=== PATIENT | male | born 1985 | race Caucasian/White ===

== ENCOUNTER 2023-03-21 14:06 | Outpatient (CLI) | payer BC | END 2023-03-21 14:07 | disposition home or self-care (01) | LOC: BICMRI 14:06 | PROVIDERS: ATTEND Orthopaedic Surgery | DX: S46.211A Strain of muscle, fascia and tendon of other parts of biceps, right arm, initial encounter (principal) ==

== ENCOUNTER 2023-04-01 06:58 | Day surgery (SDC) | payer BC ==
[2023-03-31 08:21] VITALS: BMI 39.4
[2023-04-01] MEDS ORDERED: Bupivacaine PF 0.5% 30 ML VIAL ONE (08:01)
[2023-04-01] MEDS ORDERED: Midazolam HCl 2 mg/2 ml Vial ONE (08:01)
[2023-04-01] MEDS ORDERED: fentaNYL 50 mcg/mL 1 mL Vial ONE (08:01)
[2023-04-01 08:14] LABS: #Basophils 0.1 thou/uL (0.0-0.2); #Eosinphils 0.1 thou/uL (0.0-0.7); #Monocytes 0.5 thou/uL (0.11-0.59); %Basophils 0.7 % (0.0-1.0); %Eosinophils 1.5 % (0.0-10.0); %Monocytes 7.3 % (0.0-10.0); %Neutrophils 55.2 % (42.0-75.0); Hematocrit 43.6 % (42.0-52.0); Hemoglobin 15.2 g/dL (14.0-18.0); Mean Corpuscular HGB CONC 34.9 g/dL (32.0-36.0); Mean Corpuscular Volume 88.8 fl (78.0-98.0); Mean Platelet Volume 10.1 fL (7.4-10.4); Platelet Count 245 10x3/uL (130-400); RBC Distribution Width 12.2 % (11.5-14.5); Red Blood Cell (RBC) Count 4.91 mill/uL (4.70-6.10); White Blood Cell (WBC) Count 7.2 10x3/uL (4.8-10.8)
[2023-04-01] MEDS ORDERED: Zolpidem Tartrate 5 MG TAB PO PRN (09:30)
[2023-04-01] MEDS ORDERED: Ondansetron PF 4 MG/2 ML Vial IVP PRN (09:30)
[2023-04-01] MEDS ORDERED: Promethazine HCl 25 MG/ML VIAL IM PRN (09:30)
[2023-04-01] MEDS ORDERED: HYDROcodone/Acetaminophen 10/325 mg Tablet PO PRN ×2 (09:30)
[2023-04-01] MEDS ORDERED: traMADol HCl 50 MG TAB PO PRN ×2 (09:30)
[2023-04-01] MEDS ORDERED: Ropivacaine 0.2% 550 ML 550 ML NERVE BLCK SCH (09:30)
[2023-04-01] MEDS ORDERED: Lidocaine 2% PF 5 ML VIAL ONE (09:51)
[2023-04-01] MEDS ORDERED: Lidocaine 1% (PF) 30 ML VIAL ONE (09:51)
[2023-04-01] MEDS ORDERED: Lidocaine 4% Topical Sol 50 ML BOT ONE (09:51)
[2023-04-01] MEDS ORDERED: EPINEPHrine 1 MG/ML AMP ONE (09:51)
[2023-04-01] MEDS ORDERED: fentaNYL PF 100 MCG/2 ML SYRINGE ONE (09:54)
[2023-04-01] MEDS ORDERED: HYDROmorphone 2 MG/ML VIAL ONE (09:54)
[2023-04-01] MEDS ORDERED: CEFAZOLIN 2 GM VIAL ONE (09:56)
[2023-04-01] MEDS ORDERED: Sodium Chloride 0.9% 100 ML ONE (09:56)
[2023-04-01] MEDS ORDERED: Ketorolac Tromethamine 30 MG/ML VIAL ONE (10:05)
[2023-04-01] MEDS ORDERED: Dexamethasone 20 MG/5 ML VIAL ONE (10:05)
[2023-04-01] MEDS ORDERED: PROPOFOL 200 MG/20 ML VIAL ONE (10:05)
[2023-04-01] MEDS ORDERED: Ropivacaine 0.5% HCl/PF (150 MG/30 ML VIAL) ONE (10:05)
[2023-04-01] MEDS ORDERED: Ropivacaine 2% HCl/PF (20 MG/10 ML VIAL) ONE (10:05)
[2023-04-01] MEDS ORDERED: Lidocaine 1% PF 5 ML VIAL ONE (10:05)
[2023-04-01] MEDS ORDERED: Ondansetron PF 4 MG/2 ML Vial ONE (10:05)
[2023-04-01] MEDS ORDERED: Ketorolac Tromethamine 30 MG/ML VIAL IVP SCH (12:00)
== END 2023-04-01 13:40 | disposition home or self-care (01) ==
LOC: SDC 06:58
PROVIDERS: ATTEND Orthopaedic Surgery
PROC: 0LS30ZZ Reposition Right Upper Arm Tendon, Open Approach (ICD-10-PCS; principal; 2023-04-01)
DX: S46.211A Strain of muscle, fascia and tendon of other parts of biceps, right arm, initial encounter (principal); X58.XXXA Exposure to other specified factors, initial encounter
CPT/HCPCS: 85025; A4306; C1713; J0171; J1100; J1170; J1885; J2001; J2250; J2405; J2704; J2795; J3010; J3490; S0020

== ENCOUNTER 2023-09-19 16:00 | Outpatient (CLI) | payer BC | END 2023-09-19 16:01 | LOC: SLEEPLAB 16:00 | PROVIDERS: ATTEND Nurse Practitioner Family | DX: G47.33 Obstructive sleep apnea (adult) (pediatric) (principal); R06.83 Snoring; R53.83 Other fatigue; G47.61 Periodic limb movement disorder | CPT/HCPCS: 95811 ==

== ENCOUNTER 2025-04-10 17:49 | Emergency (ER) | payer BC | END 2025-04-10 18:54 | disposition home or self-care (01) | LOC: ERS 17:49 | DX: M25.511 Pain in right shoulder (principal); X50.0XXA Overexertion from strenuous movement or load, initial encounter | CPT/HCPCS: 99283 ==

== ENCOUNTER 2025-04-20 09:56 | Outpatient (CLI) | payer BC ==
[2025-04-20 10:31] LABS: #Basophils 0.04 10x3/uL (0.0-0.2); #Eosinophils 0.09 10x3/uL (0.0-0.7); #Monocytes 0.60 10x3/uL (0.11-0.59); #Neutrophils 5.29 10x3/uL (1.40-6.50); %Basophils 0.5 % (0.0-1.0); %Eosinophils 1.1 % (0.0-10.0); %Lymphocytes 24.5 % (21.0-51.0); %Monocytes 7.5 % (0.0-10.0); %Neutrophils 65.9 % (42.0-75.0); Hematocrit 47.1 % (42.0-52.0); Hemoglobin 16.2 g/dL (14.0-18.0); Mean Corpuscular Hemoglobin 30.3 pg (27.0-31.0); Mean Corpuscular Volume 88.2 fL (78.0-98.0); Platelet Count 211 10x3/uL (130-400); Red Blood Cell (RBC) Count 5.34 mill/uL (4.70-6.10); White Blood Cell (WBC) Count 8.03 10x3/uL (4.8-10.8)
== END 2025-04-20 09:57 | disposition home or self-care (01) ==
LOC: LABBT 09:56
PROVIDERS: ATTEND Orthopaedic Surgery
DX: Z01.812 Encounter for preprocedural laboratory examination (principal); S29.011A Strain of muscle and tendon of front wall of thorax, initial encounter
CPT/HCPCS: 85025

== ENCOUNTER 2025-04-21 08:29 | Day surgery (SDC) | payer BC ==
[2025-04-20 10:16] VITALS: BMI 37.7
[2025-04-21] MEDS ORDERED: CEFAZOLIN 2 GM VIAL ONE (10:54)
[2025-04-21] MEDS ORDERED: PROPOFOL 20 ML ONE (10:56)
[2025-04-21] MEDS ORDERED: fentaNYL PF 100 MCG/2 ML SYRINGE ONE (10:56)
[2025-04-21] MEDS ORDERED: Rocuronium Bromide 10 MG/ML (10ML VIAL) ONE (10:56)
[2025-04-21] MEDS ORDERED: Ropivacaine 0.2% HCl/PF 20 ML ONE (11:01)
[2025-04-21] MEDS ORDERED: Ropivacaine 0.5% HCl/PF (150 MG/30 ML VIAL) ONE (11:01)
[2025-04-21] MEDS ORDERED: Ondansetron PF 4 MG/2 ML Vial ONE (12:02)
[2025-04-21] MEDS ORDERED: SUGAMMADEX SODIUM 200 MG/2 ML VIAL ONE (12:37)
== END 2025-04-21 16:00 | disposition home or self-care (01) ==
LOC: SDC 08:29
PROVIDERS: ATTEND Orthopaedic Surgery
PROC: 0LQ30ZZ Repair Right Upper Arm Tendon, Open Approach (ICD-10-PCS; principal; 2025-04-21)
DX: S29.011A Strain of muscle and tendon of front wall of thorax, initial encounter (principal); X50.9XXA Other and unspecified overexertion or strenuous movements or postures, initial encounter
CPT/HCPCS: C1713; J1100; J2250; J2704; J2795